=== PATIENT | female | born 1945 | race Caucasian/White ===

== ENCOUNTER 2018-06-06 23:49 | Emergency (ER) | payer MEDICARE ==
[~2018-06-06] VITALS: Ht 149.9 cm; Wt 58.1 kg
[2018-06-06 23:52] VITALS: Ht 149.9 cm; Wt 58.1 kg
[2018-06-07 01:02] VITALS: BP 152/89
== END 2018-06-07 01:02 | disposition home or self-care (01) ==
LOC: ED 23:49
DX: K59.00 Constipation, unspecified (principal); R51 Headache
CPT/HCPCS: J1885